=== PATIENT | male | born 1975 | race Caucasian/White ===

== ENCOUNTER 2017-10-03 07:36 | Outpatient (CLI) | payer OTHER | END 2017-10-03 07:47 | disposition home or self-care (01) | LOC: NUCLEAR 07:36 | DX: I20.0 Unstable angina (principal); E11.9 Type 2 diabetes mellitus without complications; I25.10 Atherosclerotic heart disease of native coronary artery without angina pectoris | CPT/HCPCS: A9500; 93017; 78452 ==